=== PATIENT | male | born 1990 | race Caucasian/White ===

== ENCOUNTER 2016-09-24 20:51 | Emergency (ER) | payer SELFPAY | END 2016-09-24 21:55 | disposition home or self-care (01) | LOC: ER1 20:51 | DX: R11.10 Vomiting, unspecified (principal); R19.7 Diarrhea, unspecified; R51 Headache; F17.210 Nicotine dependence, cigarettes, uncomplicated | CPT/HCPCS: 96372; 99283; J1885 ==

== ENCOUNTER 2016-10-16 21:17 | Emergency (ER) | payer SELFPAY | END 2016-10-16 23:33 | disposition left against medical advice (07) | LOC: ER1 21:17 | DX: Z53.21 Procedure and treatment not carried out due to patient leaving prior to being seen by health care provider (principal) ==

== ENCOUNTER 2021-08-14 20:54 | Emergency (ER) | payer OTHER ==
[~2021-08-14 20:54] MED LIST: EXPECTORANT200 MG PO; FLONASE 0.05% N16 GM; SUDAFED 60 MG T60 MG PO; ZYRTEC10 MG PO
[2021-08-14 21:27] LABS: HEMOGLOBIN 14.1 gm/dl (14.0-17.5); RED BLOOD COUNT 5.28 M/UL (4.20-5.50)
[2021-08-14 21:52] LABS: BUN/CREATININE RATIO 12 (0-10)
[2021-08-14] MEDS ORDERED: PEPCID20 MG PO (23:09)
[2021-08-14] MEDS ORDERED: PROTONIX40 MG PO (23:09)
== END 2021-08-14 23:20 | disposition home or self-care (01) ==
LOC: ER1 20:54
PROVIDERS: Student in an Organized Health Care Education/Training Program
DX: K92.0 Hematemesis (principal); R31.9 Hematuria, unspecified
CPT/HCPCS: 80053; 81001; 83690; 85025; 99284